=== PATIENT | female | born 1945 | race Caucasian/White ===

== ENCOUNTER 2017-07-30 08:00 | Outpatient (RCR) | payer MEDICARE, OTHER, SELFPAY | END 2017-08-04 08:45 | disposition home or self-care (01) | LOC: PT 08:00 | PROVIDERS: PCP Nurse Practitioner Family; Visit Provider Nurse Practitioner Family | DX: M54.42 Lumbago with sciatica, left side (principal); M70.62 Trochanteric bursitis, left hip | CPT/HCPCS: 97033; 97110; 97163 ==

== ENCOUNTER → 2018-03-24 15:51 | Outpatient (CLI) | payer MEDICARE, OTHER, SELFPAY ==
--- NOTE | 2018-03-24 15:54 | MM_ITS ---
MM Dig screening mamm BI w/CAD CAD Screening COMPARISON: Digital mammograms with CAD 01/15/2016 and additional views left breast 02/08/2016 INDICATION: There is a history of breast cancer in patient's sister diagnosed before menopause. There has been a previous biopsy left breast for benign disease. TECHNIQUE: Standard CC and MLO images were obtained. R2 CAD reviewed. FINDINGS: There is a diffusely dense and heterogenic parenchymal pattern lessening the sensitivity of mammography. The possible asymmetric density deep left breast is still faintly seen but is less prominent on the previous study. There are scattered benign-appearing microcalcifications in each breast. There is no suspicious lesion and there are no suspicious microcalcifications. IMPRESSION: Diffusely dense parenchymal pattern with no suspicious lesion seen BI-RADS Category: 2 Benign Finding(s) RECOMMENDED FOLLOW-UP: 1YR - 1 YEAR FOLLOW-UP (A letter has been sent to the patient regarding results of the study.)
== END ==
PROVIDERS: PCP Nurse Practitioner Family; Visit Provider Nurse Practitioner Family
DX: Z12.31 Encounter for screening mammogram for malignant neoplasm of breast (principal)
CPT/HCPCS: 77067

== ENCOUNTER → 2018-04-02 08:12 | Outpatient (CLI) | payer MEDICARE, OTHER, SELFPAY ==
[2018-04-02 09:17] LABS: Anion Gap 15.3 mEq/L (5-15); Blood Urea Nitrogen 20 mg/dL (7-18); Calcium 9.2 mg/dL (8.5-10.1); Carbon Dioxide 27 mmol/L (21.0-32.0); Chloride 100 mmol/L (98-107); Creatinine,Serum 0.72 mg/dL (0.55-1.02); Estimated Glomerular Filt Rate 80 ml/min (>60); GFR (African American) 97 ML/MIN (>60); Glucose 108 mg/dL (74-106); Potassium 4.3 mmoL/L (3.5-5.1); Sodium 138 mmol/L (136-145)
--- NOTE | 2018-04-02 09:36 | CT_ITS ---
CT abdomen pelvis w con CLINICAL INDICATION: Left lower quadrant pain and tenderness ITS.REASON: LLQ ABD PAIN ORDERING PHYSICIAN: Rabia Pang PATIENT AGE: 72 years COMPARISON: None TECHNIQUE: Axial images obtained with sagittal and coronal reformats. All CT scans at the facility use one or more dose reduction, viz: automated exposure control, ma/kV adjustment per patient size (including targeted exams where dose is matched to indication, i.e. head), or iterative reconstruction technique. PROCEDURE: Oral Contrast: Redicat IV Contrast: 75 mL Isovue-370. FINDINGS: There is a 5 mm noncalcified nodule in the right upper lobe inferiorly and anteriorly nonspecific. The liver has an unremarkable appearance. Gallstones are present. No gallbladder distention or ductal dilatation. The spleen and adrenal glands are unremarkable. There is a small cystic area within the mid aspect of the body of the pancreas at 5 mm. This is nonspecific. Suggest 6 month follow-up with pancreatic protocol to confirm short-term stability. There is a 4 mm nonobstructing stone in the lower pole of the right kidney at 2 mm nonobstructing stone in the upper pole the right kidney and there is a small right renal cortical cyst 8 mm. No ureteral calculi. No hydronephrosis. Unremarkable appendix. Tiny umbilical hernia is present containing fat. No intestinal obstruction or free air. There are scattered sigmoid diverticula. There has been a prior hysterectomy no pelvic mass or abnormal fluid collection or focal inflammatory change evident within the pelvis. Degenerative changes are present in the thoracic and lumbar spine. There is mild wedging of L3 anteriorly which may be old and there is 6 mm anterolisthesis of L4 on L5. Mild sclerosis involves right SI joint. IMPRESSION: 1. No acute abdominal or pelvic findings. 2. Cholelithiasis. 3. Right nephrolithiasis. 4. 5 mm hypoattenuating area in the mid aspect of the pancreas. This may be due to a benign pancreatic cystic lesion, however, six-month follow-up is recommended to confirm short-term stability 5. Scant colonic diverticula. No evidence of diverticulitis
== END ==
PROVIDERS: PCP Nurse Practitioner Family; Visit Provider Nurse Practitioner Family
DX: R10.32 Left lower quadrant pain (principal)
CPT/HCPCS: 36415; 74177; 80048; Q9967

== ENCOUNTER → 2018-06-14 13:33 | Outpatient (CLI) | payer MEDICARE, OTHER, SELFPAY | PROVIDERS: PCP Nurse Practitioner Family; Visit Provider Nurse Practitioner Family | DX: M54.12 Radiculopathy, cervical region (principal) ==

== ENCOUNTER → 2018-06-16 10:47 | Outpatient (CLI) | payer MEDICARE, OTHER, SELFPAY | PROVIDERS: PCP Nurse Practitioner Family; Visit Provider Nurse Practitioner Family | DX: M54.12 Radiculopathy, cervical region (principal) ==

== ENCOUNTER → 2018-06-17 10:48 | Outpatient (CLI) | payer MEDICARE, OTHER, SELFPAY ==
--- NOTE | 2018-06-17 10:51 | MR_ITS ---
MR cervical spine wo con, MR 3-d myelogram/MRCP HISTORY: Neck pain X2-3 Months. LT arm pain, numbness, and tingling 4th-5th digits RT arm feels like ice water. ITS.REASON: RADICULOPATHY ORDERING PHYSICIAN: Rabia Pang PATIENT AGE: 72 years Comparison: CT TECHNIQUE: Standard multiplanar multiecho sequences are performed without contrast. 3-D MIP and myelographic images are also rendered and reviewed FINDINGS: The craniocervical junction has an unremarkable appearance. C2-C3: There is prominence of the posterior longitudinal ligament causing narrowing of the canal without impingement of the cord. C3-C4: Degenerative disc disease with bulging disc and prominent posterior longitudinal ligament and small central disc osteophyte complex slightly eccentric toward the left is resultant canal stenosis of 8 mm with mild impingement upon the central aspect of the cord. There is mild bilateral foraminal narrowing from uncovertebral and facet hypertrophy C4-C5: Degenerative disc disease with bulging disc and prominent posterior longitudinal ligament with bulging disc and broad-based central right paracentral disc osteophyte complex causing severe narrowing of the canal at 7 mm and severe right lateral recess narrowing with moderate to severe bilateral foraminal narrowing. C5-C6: Degenerative disc disease with bulging disc with canal stenosis of 8 mm with bilateral foraminal narrowing C6-C7: There is been prior fusion at C6-C7 with mild kyphosis. There is nonspecific increased T2 signal involving the disc space and endplates on the right. C7-T1: Degenerative disc disease with bulging disc which is eccentric toward the left with left lateral recess and foraminal narrowing. T1 - T2: Degenerative disc disease with uncovertebral disc osteophyte complex on the right with right lateral recess and foraminal narrowing. IMPRESSION: Abnormal MRI of the cervical spine with multilevel degenerative disc disease along with disc osteophyte complexes bulging disc and prominent posterior longitudinal ligament with resultant multilevel areas of canal stenosis lateral recess and foraminal narrowing. Please see above for detailed description at each level. There is impingement upon the cord anteriorly at C3-C4 C4-C5 and C5-C6 Prior fusion at C6-C7 with kyphosis
== END ==
PROVIDERS: PCP Nurse Practitioner Family; Visit Provider Nurse Practitioner Family
DX: M54.12 Radiculopathy, cervical region (principal)
CPT/HCPCS: 72141; 76376

== ENCOUNTER 2018-07-16 08:00 | Outpatient (RCR) | payer MEDICARE, OTHER, SELFPAY | END 2018-07-16 08:05 | disposition home or self-care (01) | LOC: PT 08:00 | PROVIDERS: Visit Provider Neurological Surgery | DX: M47.22 Other spondylosis with radiculopathy, cervical region (principal) | CPT/HCPCS: 97010; 97012; 97014; 97035; 97110; 97140; 97163; G0283 ==

== ENCOUNTER → 2018-09-22 10:02 | Outpatient (CLI) | payer MEDICARE, OTHER, SELFPAY ==
--- NOTE | 2018-09-22 10:11 | CT_ITS ---
CT abdomen w con CLINICAL INDICATION: ITS.REASON: BENIGN PANCREAS NEOPLASMS, 6 MO FU ORDERING PHYSICIAN: Rabia Pang PATIENT AGE: 73 years COMPARISON: 04/02/2018 TECHNIQUE: Contrast Used:75ml Optiray 350 Oral Contrast: Axial images obtained with sagittal and coronal reformats. All CT scans at the facility use one or more dose reduction, viz: automated exposure control, ma/kV adjustment per patient size (including targeted exams where dose is matched to indication, i.e. head), or iterative reconstruction technique. FINDINGS: Pre- and postenhanced images are obtained. Post enhanced images are obtained at 30 seconds, 60 seconds, and 5 minute delayed. The isodensity in the mid aspect of the body of the pancreas is once again noted at 5 mm not significantly changed. No new abnormalities are apparent. Cholelithiasis is noted. The gallbladder is contracted. The liver, spleen, and adrenal glands have an unremarkable appearance. There is minimal cortical calcification of the right kidney laterally with some minimal cortical scarring. There is nonobstructing 4 mm stone in the lower pole the right kidney. No hydronephrosis. IMPRESSION: 1. No change in the 5 mm isodensity in the mid aspect of the body of the pancreas which may represent a small pancreatic cyst. Consider continued 12 month follow-up. Upper to right nephrolithiasis. 3. Cholelithiasis
== END ==
PROVIDERS: PCP Nurse Practitioner Family; Visit Provider Nurse Practitioner Family
DX: D13.6 Benign neoplasm of pancreas (principal)
CPT/HCPCS: 74160; Q9967

== ENCOUNTER → 2019-04-13 08:41 | Outpatient (CLI) | payer MEDICARE, OTHER, SELFPAY ==
--- NOTE | 2019-04-13 08:47 | MM_ITS ---
PROCEDURE: MM DIG SCREENING MAMM BI with 3D tomography CLINICAL INDICATION: SCREENING COMPARISON: DMSB DIG MAMM-SCREEN POOJA from 01/15/2016 DMDXUAVL DIG MAMM-DX UNI ADD VIEWS-LT from 02/08/2016 [facility] MM Dig screening mamm BI w/CAD from 03/24/2018 TECHNIQUE: Standard CC and MLO images were obtained with 3D tomography. FINDINGS: Average fibroglandular tissue. Scattered benign-appearing calcifications. There is scattered areas of asymmetry which are not significantly changed. No malignant appearing mass or malignant-appearing microcalcification is evident. IMPRESSION: BI-RAD Category: 2 Benign Finding(s) FOLLOW-UP: 1YR 1 Year Follow-up (A letter has been sent to the patient regarding results of the study.) Dictated by: Luis Angel Parnell MD 04/18/2019 18:02 Electronically signed by Luis Angel Parnell MD in [place] 04/18/2019 18:02
== END ==
PROVIDERS: PCP Nurse Practitioner Family; Visit Provider Nurse Practitioner Family
DX: Z12.31 Encounter for screening mammogram for malignant neoplasm of breast (principal)
CPT/HCPCS: 77063; 77067

== ENCOUNTER → 2019-10-04 09:54 | Outpatient (CLI) | payer MEDICARE, OTHER, SELFPAY ==
--- NOTE | 2019-10-04 09:59 | CT_ITS ---
PROCEDURE: CT ABDOMEN W CON CLINICAL HISTORY: BENIGN NEOPLASM OF PANCREAS Follow-up pancreatic nodule COMPARISON: ABDW CT abdomen w con from 09/22/2018 TECHNIQUE: 75 mL Optiray 350, multiphasic imaging Axial images obtained with sagittal and coronal reformats. All CT scans at the facility use one or more dose reduction, viz: automated exposure control, ma/kV adjustment per patient size (including targeted exams where dose is matched to indication, i.e. head), or iterative reconstruction technique. FINDINGS: Mild diffuse fatty liver infiltration. Cholelithiasis. The spleen and adrenal glands have an unremarkable appearance. 3 mm stone is present in the lower pole of the right kidney. There is a faint area of increased density in the upper pole of the right kidney laterally consistent with some cortical scarring with dystrophic calcification. Small area of decreased attenuation once again noted involving the mid aspect of the body of the pancreas similar to the previous exam. No new abnormalities are evident. There is a mild amount of retained colonic feces. IMPRESSION: Stable CT appearance of the pancreas. Small hypodensity in the mid aspect of the body of the pancreas may be due to small cyst or even fatty invagination within the body of the pancreas. This is stable over 1 year.. Cholelithiasis Dictated by: Luis Angel Parnell MD 10/05/2019 10:36 Electronically signed by Luis Angel Parnell MD in [place] 10/05/2019 10:36
== END ==
PROVIDERS: PCP Nurse Practitioner Family; Visit Provider Nurse Practitioner Family
DX: D13.6 Benign neoplasm of pancreas (principal)
CPT/HCPCS: 74160; Q9967

== ENCOUNTER 2019-12-06 15:39 | Emergency (ER) | payer MEDICARE, OTHER, SELFPAY ==
--- NOTE | 2019-12-06 15:33 | ECG_ITS ---
APPROVED REPORT Exam: Resting ECG HR:119 bpm ECG Measurements Heart Rate 119 AXES QRSd 96 QRS 18 QT 294 T -33 QTc 413 <Conclusion> Atrial fibrillation with rapid ventricular response Incomplete right bundle branch block Possible Inferior infarct, age undetermined Anterior infarct, age undetermined Abnormal ECG Electronically signed by : Delano Ledezma, 12/09/2019 07:32:03
[2019-12-06 15:40] VITALS: BP 190/96; PULSE 134; RESP 20; TEMP 36.8; O2SAT 95; BMI 30.7
[2019-12-06 15:45] VITALS: BMI 30.7
--- NOTE | 2019-12-06 15:46 | XR_ITS ---
PROCEDURE: XR CHEST 2V CLINICAL HISTORY: chest pain COMPARISON: CR CXR CHEST(2 VIEWS-NOT PORTABLE) from 12/22/2012 FINDINGS: There is borderline cardiomegaly without failure. There is patchy density in the right lower lung zone which may be due to an area of atelectasis or infiltrate versus summation artifact. No acute bony abnormalities. IMPRESSION: Possible patchy atelectasis or infiltrate in the right lower lobe with cardiomegaly Dictated by: Luis Angel Parnell MD 12/06/2019 17:21 Luis Angel Parnell MD in [place] 12/06/2019 17:21
[2019-12-06 16:00] LABS: Basophils # 0.1 K/mm3 (0-0.2); Basophils % 1.1 % (0.1-2.0); Eosinophils # 0.4 K/mm3 (0.0-0.4); Eosinophils % 4.8 % (0.1-12.0); Hematocrit 40.2 % (37.0-47.0); Hemoglobin 13.9 g/dL (12.2-16.2); Lymphocytes # 2.5 K/mm3 (0.7-4.5); Lymphocytes % 27.5 % (10-50); Mean Corpuscular HGB Conc 34.5 g/dL (31.8-35.4); Mean Corpuscular Hemoglobin 30.1 pg (27.0-31.2); Mean Corpuscular Volume 87.1 fl (81-99); Mean Platelet Volume 8.8 fl (7.4-10.4); Monocytes # 0.4 K/mm3 (0.1-1.0); Monocytes % 4.6 % (1.7-9.3); Neutrophils # 5.7 K/mm3 (1.8-7.8); Neutrophils % 61.9 % (37.0-80.0); Platelet Count 258 K/mm3 (142-424); Red Blood Count 4.62 M/mm3 (4.20-5.40); Red Cell Distribution Width 14.6 % (11.5-17.5); White Blood Count 9.2 K/mm3 (4.8-10.8)
[2019-12-06 16:02] LABS: Chloride 105 mmol/L (98-107)
[2019-12-06 16:03] LABS: Potassium 3.9 mmoL/L (3.5-5.1); Sodium 142 mmol/L (136-145)
[2019-12-06 16:05] LABS: Alanine Aminotransferase 94 U/L (12-78); Alkaline Phosphatase 114 U/L (38-126); Aspartate Amino Transferase 45 U/L (14-36); Bilirubin,Total 0.5 mg/dl (0.2-1.3); Blood Urea Nitrogen 12 mg/dl (7-17); Creatinine Clearance Estimated 68 mL/min (50-200); Estimated Glomerular Filt Rate 98 ml/min (>60); GFR (African American) 119 ML/MIN (>60)
[2019-12-06 16:06] LABS: Albumin Level 4.3 g/dl (3.5-5.0); Albumin/Globulin Ratio 1.2 (1.1-1.8); Anion Gap 13.9 mEq/L (5-15); Calcium 9.6 mg/dl (8.4-10.2); Carbon Dioxide 27 mmol/L (22.0-30.0); Globulin 3.6 g/dL (1.3-3.2); Glucose 130 mg/dl (74-100); Total Protein,Serum 7.9 g/dl (6.3-8.2)
[2019-12-06 16:18] LABS: Troponin I < 0.01 ng/ml (0.00-0.034)
--- NOTE | 2019-12-06 16:29 | HMH.EDGENADL ---
ED Disposition Clinical Impression: Paroxysmal atrial fibrillation Disposition: Home, Self-Care Condition on Discharge: Good Instructions: DI for Atrial Fibrillation Additional Instructions: Stop taking aspirin. Start Eliquis 5 mg twice a day. Metoprolol 12.5 mg twice a day. Follow-up with Dr. Woody in his office, call for appointment. Return to the emergency room if severe racing heart that does not resolve within 30 minutes, chest pain, or fainting. Prescriptions: Apixaban [Eliquis 5mg tab] 5 mg PO BID #60 pack Prescription Printed Metoprolol Tartrate [Lopressor 25mg tablet] 12.5 mg PO BID #30 tab Prescription Printed Referrals: Rabia Pang [Primary Care Provider] - - Critical Care Critical Care Time: No Attestation: On 12/06/19, the high probability of a clinically significant, sudden or life threatening deterioration of the following system(s) required my full and direct attention, intervention and personal management. The time I documented below is in addition to time spent performing reported procedures but includes the following listed in this critical care notation. Medical Decision Making - Medical Records Medical records reviewed: Yes: I reviewed the patient's medical records. - [place] Inquiry Pt receiving controlled substance: No Vital Signs: 12/06/19 15:40 12/06/19 18:03 Temperature 98.3 F 98.9 F Temperature Source Oral Oral Pulse Rate 72 Pulse Rate [Right Brachial] 134 H Respiratory Rate 20 17 Blood Pressure 174/85 H Blood Pressure [Right Arm] 190/96 H Blood Pressure Mean [Right Arm] 127 Blood Pressure Source [Right Arm] Automatic Cuff Blood Pressure Position [Right Arm] Supine 02 Sat by Pulse Oximetry 95 Oxygen Delivery Method Room Air Room Air - Lab Data Lab results reviewed: Yes: I reviewed the patient's lab results. Lab Results 12/06/19 15:45: WBC 9.2, RBC 4.62, Hgb 13.9, Hct 40.2, MCV 87.1, MCH 30.1, MCHC 34.5, RDW 14.6, Plt Count 258, MPV 8.8, Neut % (Auto) 61.9, Lymph % (Auto) 27.5, [place] % (Auto) 4.6, Eos % (Auto) 4.8, Baso % (Auto) 1.1, Neut # (Auto) 5.7, Lymph # (Auto) 2.5, [place] # (Auto) 0.4, Eos # (Auto) 0.4, Baso # (Auto) 0.1 12/06/19 15:45: Sodium 142, Potassium 3.9, Chloride 105, Carbon Dioxide 27, Anion Gap 13.9, BUN 12, Creatinine 0.60, Estimated Creat Clear 68, Estimated GFR 98, Est GFR ( Amer) 119, Glucose 130 H, Calcium 9.6, Total Bilirubin 0.5, AST 45 H, ALT 94 H, Alkaline Phosphatase 114, Troponin I < 0.01, Total Protein 7.9, Albumin 4.3, Globulin 3.6 H, Albumin/Globulin Ratio 1.2 12/06/19 15:45: TSH 2.02, Free T4 Index 3.2 L, Thyroxine (T4) 11.9 H, T3 Uptake 27 Result diagrams: 12/06/19 15:45 12/06/19 15:45 Orders (Tests/Meds): ED MEDICATIONS Discontinued Medications Generic Name Dose Route Start Last Admin Trade Name Davidq PRN Reason Stop Dose Admin Apixaban 5 mg 12/06/19 17:49 12/06/19 18:07 Eliquis 5mg Tablet PO 12/06/19 17:50 5 mg ONCE ONE Administration Metoprolol Tartrate 12.5 mg 12/06/19 17:49 12/06/19 17:54 Lopressor 25mg Tablet PO 12/06/19 17:50 12.5 mg ONCE ONE Administration - Radiology Data #1 Image(s): Chest Image Reviewed: Yes I have reviewed radiologist's interpretation PROCEDURE: XR CHEST 2V CLINICAL HISTORY: chest pain COMPARISON: CR CXR CHEST(2 VIEWS-NOT PORTABLE) from 12/22/2012 FINDINGS: There is borderline cardiomegaly without failure. There is patchy density in the right lower lung zone which may be due to an area of atelectasis or infiltrate versus summation artifact. No acute bony abnormalities. IMPRESSION: Possible patchy atelectasis or infiltrate in the right lower lobe with cardiomegaly Dictated by: Luis Angel Parnell MD 12/06/2019 17:21 Luis Angel Parnell MD in [place] 12/06/2019 17:21 - ECG Data Tracing #1 EKG interpreted by Hector Courtney MD: Rhythm: Atrial fibrillation with rapid ventricular response Rate: 119 [place]: stephanie
--- NOTE | 2019-12-06 17:12 | ECG_ITS ---
APPROVED REPORT Exam: Resting ECG HR:72 bpm ECG Measurements Heart Rate 72 AXES GA 190 P 39 QRSd 98 QRS -18 QT 430 T -17 QTc 470 <Conclusion> Normal sinus rhythm Low voltage QRS Incomplete right bundle branch block Inferior infarct, age undetermined Cannot rule out Anterior infarct, age undetermined Abnormal ECG Electronically signed by : Delano Ledezma, 12/09/2019 07:31:29
--- NOTE | 2019-12-06 17:32 | PC.NURSE ---
dr hammond consulting with dr gomez with cardiology at [facility].
[2019-12-06 17:45] LABS: Free Thyroxine Index 3.2 ug/dL (5.93-13.13); T4 (Thyroxine) 11.9 ug/dl (5.53-11.0); Triiodothryronine (T3) Uptake 27 % (23.5-40.5)
[2019-12-06 17:59] LABS: Thyroid Stimulating Hormone 2.02 uIU/mL (0.465-4.68)
[2019-12-06 18:03] VITALS: BP 174/85; PULSE 72; RESP 17; TEMP 37.2; O2SAT 99
== END 2019-12-06 18:09 | disposition home or self-care (01) ==
PROVIDERS: Emergency Provider Emergency Medicine; PCP Nurse Practitioner Family
DX: I48.0 Paroxysmal atrial fibrillation (principal); E11.9 Type 2 diabetes mellitus without complications; K21.9 Gastro-esophageal reflux disease without esophagitis; Z87.442 Personal history of urinary calculi; I25.2 Old myocardial infarction; Z91.040 Latex allergy status; Z88.2 Allergy status to sulfonamides
CPT/HCPCS: 71046; 80053; 84436; 84443; 84479; 84484; 85025; 93005; 99283

== ENCOUNTER → 2020-04-27 10:37 | Outpatient (CLI) | payer MEDICARE, SELFPAY ==
--- NOTE | 2020-04-27 10:42 | MM_ITS ---
PROCEDURE: MM DIG SCREENING MAMM BI W/CAD Digital Breast Tomosynthesis Included CLINICAL INDICATION: SCREENING There is a history of breast cancer in the patient's sister. There has been a previous biopsy left breast for benign disease. COMPARISON: MG DMDXUAVL DIG MAMM-DX UNI ADD VIEWS-LT from 02/08/2016 MG [facility] MM Dig screening mamm BI w/CAD from 03/24/2018 MG MM DIG SCREENING MAMM BI W/CAD from 04/13/2019 TECHNIQUE: Standard CC and MLO images and 3D Tomosynthesis was obtained. R2 CAD reviewed. FINDINGS: Use somewhat heterogenic fibroglandular densities are seen in both breast. There are few benign appearing microcalcifications in each breast. There is minimal arterial calcification left breast. There is a stable benign-appearing nodular density low in the axilla right breast likely a low-lying node. There is no suspicious lesion in either breast and no suspicious microcalcifications. IMPRESSION: Diffusely dense parenchymal pattern with no suspicious lesions seen BI-RAD Category: 2 Benign Finding(s) FOLLOW-UP: 1YR 1 Year Follow-up (A letter has been sent to the patient regarding results of the study.) Dictated by: Dr. Sorin Rodriguez MD 05/01/2020 17:33 Dr. Sorin Rodriguez MD in [place] 05/01/2020 17:33
== END ==
PROVIDERS: PCP Nurse Practitioner Family; Visit Provider Nurse Practitioner Family
DX: Z12.31 Encounter for screening mammogram for malignant neoplasm of breast (principal)
CPT/HCPCS: 77063; 77067

== ENCOUNTER → 2021-04-29 14:43 | Outpatient (CLI) | payer MEDICARE, SELFPAY ==
--- NOTE | 2021-04-29 14:50 | MM_ITS ---
PROCEDURE INFORMATION: Exam: MG Bilateral Screening 3D Mammography Exam date and time: 04/29/2021 2:50 PM Age: 75 years old Clinical indication: Encounter for screening mammogram for malignant neoplasm of breast TECHNIQUE: Imaging protocol: Bilateral Screening tomosynthesis and 2D mammography including computer-aided detection (CAD) when performed. COMPARISON: 1. MG MM DIG SCREENING MAMM BI W/CAD 04/27/2020 10:52 AM 2. MG MM DIG SCREENING MAMM BI W/CAD 04/13/2019 8:50 AM FINDINGS: MAMMOGRAPHY: Breast composition: The breast tissue is heterogeneously dense, which may obscure small masses. Mass: None. Architectural distortion: None. Calcifications: No suspicious calcifications. Asymmetric density: None. Skin thickening: None. Axillary adenopathy: None. IMPRESSION: No mammographic evidence of malignancy. Annual screening is recommended unless otherwise clinically indicated. ASSESSMENT: BI-RADS Category 1: Negative
== END ==
PROVIDERS: PCP Nurse Practitioner Family; Visit Provider Nurse Practitioner Family
DX: Z12.31 Encounter for screening mammogram for malignant neoplasm of breast (principal)
CPT/HCPCS: 77063; 77067

== ENCOUNTER → 2022-05-08 09:05 | Outpatient (CLI) | payer MEDICARE, SELFPAY ==
--- NOTE | 2022-05-08 09:10 | MM_ITS ---
PROCEDURE INFORMATION: Exam: MG Bilateral Screening 3D Mammography Exam date and time: 05/08/2022 9:05 AM Age: 76 years old Clinical indication: Screening examination. Her sister had breast cancer. History of benign left excisional biopsy. TECHNIQUE: Imaging protocol: Bilateral Screening tomosynthesis and 2D mammography including computer-aided detection (CAD) when performed. COMPARISON: 1. MG MM DIG SCREENING MAMM BI W/CAD 04/29/2021 3:22 PM 2. MG MM DIG SCREENING MAMM BI W/CAD 04/27/2020 10:52 AM 3. MG MM DIG SCREENING MAMM BI W/CAD 04/13/2019 8:50 AM 4. MG [facility] MM Dig screening mamm BI w/CAD 03/24/2018 4:12 PM FINDINGS: MAMMOGRAPHY: Breast composition: The breasts are heterogeneously dense, which may obscure small masses. Mass: None. Architectural distortion: Stable architectural distortion in the left upper outer quadrant with history of excisional biopsy. Calcifications: No suspicious calcifications. Asymmetric density: None. Skin thickening: None. Axillary adenopathy: None. IMPRESSION: No mammographic evidence of malignancy. Annual screening is recommended unless otherwise clinically indicated. ASSESSMENT: BI-RADS Category 2: Benign
--- NOTE | 2022-05-08 09:40 | XR_ITS ---
FINAL REPORT TECHNIQUE: Bone densitometry calculations of the lumbar spine and right hip were obtained. CLINICAL HISTORY: . post menopausal screening FINDINGS: DEXA BONE DENSITY AXIAL SKELETON Using L1-4, the bone mineral density of the spine is 1.322 g/cm2, corresponding to T-score of 2.5 with a Z-score of 4.9. Using the right hip, the bone mineral density of the femoral neck is 0.620 g/cm2, corresponding to a T-score of -2.1 with a Z-score 0.1. NOTE: T-score: Standard deviation compared with peak bone mass of young adult mean. *Following the recommendations of the International Society of Bone densitometry, classification of hip BMD is based on the lower of two T-scores; total hip or femoral neck. IMPRESSION: Diminished bone mineral density of the right hip consistent with osteopenia. FRAX 10 year fracture risk is 3.3% for a hip fracture and 13% for a major osteoporotic fracture. Normal bone mineral density of the lumbar spine. Reviewed, Interpreted and Dictated by Paulina Cantrell MD Transcribed by Carmen Woody Authenticated and [facility][1]
== END ==
PROVIDERS: PCP Nurse Practitioner Family; Visit Provider Nurse Practitioner Family
DX: Z12.31 Encounter for screening mammogram for malignant neoplasm of breast (principal); Z78.0 Asymptomatic menopausal state
CPT/HCPCS: 77063; 77067; 77080

== ENCOUNTER 2023-07-14 16:30 | Outpatient (CLI) | payer MEDICARE, SELFPAY | END 2023-07-14 23:59 | disposition home or self-care (01) | LOC: RAD 16:31 | PROVIDERS: PCP Nurse Practitioner Family; Visit Provider Nurse Practitioner Family | DX: Z12.31 Encounter for screening mammogram for malignant neoplasm of breast (principal) | CPT/HCPCS: 77063; 77067 ==

== ENCOUNTER 2023-11-27 08:23 | Outpatient (CLI) | payer MEDICARE, SELFPAY ==
--- NOTE | 2023-11-27 08:30 | CT_ITS ---
FINAL REPORT TECHNIQUE: Axial imaging of the chest was obtained without contrast. Reformatted images were also obtained and reviewed.This study was performed with techniques to keep radiation doses as low as reasonably achievable, (ALARA). Individualized dose reduction technique using automated exposure control or adjustment of mA and/or kV according to the patient's size were employed. CLINICAL HISTORY: CHRONIC COUGH FINDINGS: There is a 19 mm left thyroid lobe nodule. Recommend thyroid ultrasound for further evaluation.There is no axillary adenopathy. There is no hilar or mediastinal mass or adenopathy. Heart size is normal. There is no pericardial or pleural effusion. Limited images of the upper abdomen are unremarkable. There is mild emphysema and mild scarring. A 5 mm right upper lobe nodule is seen on series 2, image 45. There is a calcified granuloma noted in the right lower lobe. IMPRESSION: 5 mm right upper lobe nodule. Recommend 12 month follow-up chest CT. Reviewed, Interpreted and Dictated by Abdi Clemons III, MD Transcribed by Qi Ness Authenticated and . [facility]
== END 2023-11-27 23:59 | disposition home or self-care (01) ==
LOC: RAD 08:24
PROVIDERS: PCP Nurse Practitioner Family; Visit Provider Nurse Practitioner Family
DX: R05.3 Chronic cough (principal)
CPT/HCPCS: 71250

== ENCOUNTER 2023-12-08 09:56 | Outpatient (CLI) | payer MEDICARE, SELFPAY ==
--- NOTE | 2023-12-08 10:04 | US_ITS ---
FINAL REPORT TECHNIQUE: Real-time grayscale and color ultrasound of the thyroid was performed. CLINICAL HISTORY: THYROID NODULE COMPARISON: None FINDINGS: The thyroid gland is diffusely enlarged and heterogeneous. It measures 4.6 x 2.9 x 1.9 cm on the right and 4.1 x 2.0 x 1.6 cm on the left. The isthmus measures 0.4 cm. Nodules: In the right lobe of the thyroid is a mass measuring 2.1 x 1.9 cm, hypoechoic and solid, TR 4. In the left lobe is a mass measuring 2.5 x 1.1 cm, hypoechoic and solid, TR 4. IMPRESSION: Bilateral TR 4 lesions greater than 1.5 cm. Tissue sampling recommended per TI-RADS criteria. Reviewed, Interpreted and Dictated by Gonsalo White MD Transcribed by Aidee Che Authenticated and [facility]
== END 2023-12-08 23:59 | disposition home or self-care (01) ==
LOC: RAD 09:56
PROVIDERS: PCP Nurse Practitioner Family; Visit Provider Nurse Practitioner Family
DX: E04.1 Nontoxic single thyroid nodule (principal)
CPT/HCPCS: 76536

== ENCOUNTER 2024-07-14 07:42 | Outpatient (CLI) | payer MEDICARE, SELFPAY ==
--- NOTE | 2024-07-14 07:44 | MM_ITS ---
PROCEDURE INFORMATION: Exam: MG Bilateral Screening 3D Mammography Exam date and time: 07/14/2024 8:05 AM Age: 78 years old Clinical indication: Screening examination TECHNIQUE: Imaging protocol: Bilateral Screening tomosynthesis and 2D mammography including computer-aided detection (CAD) when performed. COMPARISON: 1. MG MM DIG SCREENING MAMM BI W/CAD 07/14/2023 4:25 PM 2. MG MM DIG SCREENING MAMM BI W/CAD 05/08/2022 9:05 AM FINDINGS: MAMMOGRAPHY: Breast composition: The breasts are heterogeneously dense, which may obscure small masses. Mass: No suspicious masses. Architectural distortion: None. Calcifications: No suspicious calcifications. Asymmetric density: None. Skin thickening: None. Axillary adenopathy: None. IMPRESSION: No mammographic evidence of malignancy. Annual screening is recommended unless otherwise clinically indicated. ASSESSMENT: BI-RADS Category 1: Negative.
--- OUTSIDE RECORDS SUMMARY | 2024-07-14 07:44 | XMS_ITS | Data Portability ---
Author Organization [facility] - Chase juarez MD, Main Office Address [address] , [facility] [address] [place] [address] Assessment No assessment recorded. Plan of Treatment Reminders Order Date Submit Date Provider Last Modified By Organization Details Last Modified Time Details Appointments None record ed. Lab None record ed. Referral None record ed. Procedures None record ed. Surgeries None record ed. Imaging None record ed. Medication Orders None record ed. Patient TargetsNo targets recorded. Patient Instructions Encounter Date Encounter Id Patient Instructions Last Modified By Organization Details Last Modified Time 07/30/2018 [id number] Neck Pain: Care Instructions Not available 07/30/2018 12:09:10 Carpal Tunnel Syndrome: Care Instructions Not available 07/30/2018 12:09:10 Reason for Referral None Reported. Results Created Date Observation Date Name Description Value Unit Range Abnormal Flag Note LastModifiedBy Organization Detail LastModifiedTime 07/31/19 19 07/30/2018 elect romyo gram + nerve condu ction study No observ ation record ed. [facility] Not Available 2018 12:14:54 Result Notes None recorded. Problems No Known Problems Procedures Surgical History Date Name Laterality Status Provider Name and Address Organization Details Recorded Time 07/30/2018 NCV/EMG completed Harmeet Martinez MD 07/30/2018 12:06:40 Imaging Results Imaging Date Name Status LastModified by Organization Details LastModified Time 07/30/2018 electromyogram + nerve conduction study completed [facility] Information not available 07/30/2018 12:14:54 Procedure Notes None recorded. Medical Equipment None Reported. Allergies No known drug allergies Medications Name Sig Start Date Stop Date Status Note LastModified by Organization Details LastModified Time metformin 500 mg tablet active Not Available Not Available Not Available fluconazole 200 mg tablet active Not Available Not Available No t Available meloxicam 15 mg tablet active Not Available Not Available Not Available ciprofloxacin 500 mg tablet active Not Available Not Availabl e Not Available doxycycline monohydrate 100 mg capsule active Not Available Not Available N ot Available hydrocodone 7.5 mg-acetaminophen 325 mg tablet active Not Available Not Availabl e Not Available gabapentin 300 mg capsule active Not Available Not Available N ot Available gabapentin 100 mg capsule active Not Available Not Available N ot Available diazepam 10 mg tablet active Not Available Not Available Not Available ibuprofen 600 mg tablet active Not Available Not Available Not Available lisinopril 2.5 mg tablet active Not Available Not Available No t Available diazepam 5 mg tablet active Not Available Not Available Not Available nitrofurantoin monohydrate/macr ocrystals 100 mg capsule active Not Available Not Available Not Available Suprep Bowel Prep Kit 17.5 gram-3.13 gram-1.6 gram oral solution active Not Available Not Availabl e Not Available Vitals None Recorded Social History None recorded. Functional Status None recorded. Mental Status None recorded. Family History Nothing Reported. Medical History No medical history recorded. Gynecological HistoryNo gynecological history recorded. Obstetrics History GPAL:G 0 P 0 0 0 0 Past Encounters Encounter ID Performer Location Encounter Start Date Encounter Closed Date Diagnosis/Indication Diagnosis SNOMED-CT Code Diagnosis ICD10 Code Diagnosis Note [id number] Harmeet Luis Angel Main Office [address], [facility] [address] [place] [address] 07/30/2018 10:26:21 07/30/2018 12:08:23 Bilateral carpal tunnel syndrome [id number] 1145986 G56.03 Mild bilateral CTS. Cervical radiculopathy 02986422 M54.12 Mild chronic left C7/8 radiculopa thy. Health Concerns Section Related Observation LastModified by Organization Detai ls LastModified Time None Recorded Concern Status LastModified by Organization Details LastModified Time None Recorded Advance Directives Directive None Recorded Payers Encounter Date Sequence Insurance Name Policy Number Policy Laura Covered Member ID Laura Member ID Guarantor Name 07/30/2018 2 [employer] (MEDICARE SUPPLEMENT) Frances Dye [id number] Frances Dye 07/30/2018 1 [place] Frances Dye [id number] Frances Dye OBGyn Episode No OBEpisode recorded.
== END 2024-07-14 23:59 | disposition home or self-care (01) ==
LOC: RAD 07:42
PROVIDERS: PCP Nurse Practitioner Family; Visit Provider Nurse Practitioner Family
DX: Z12.31 Encounter for screening mammogram for malignant neoplasm of breast (principal)
CPT/HCPCS: 77063; 77067